=== PATIENT | female | born 1990 | race Caucasian/White ===

== ENCOUNTER 2017-07-02 08:25 | Inpatient (IN) | payer OTHER ==
[2017-07-02] MEDS ORDERED: PITOCin/NS 20 UNIT/1000ML DRIP 20,000 MILLIUNITS/1,000 ML BAG IV ONE (08:40)
[2017-07-02] MEDS ORDERED: LACTATED RINGERS 1,000 ML ONE (10:49)
[2017-07-02] MEDS ORDERED: BRETHINE SUB-Q PRN (11:09)
[2017-07-02] MEDS ORDERED: XYLOCAINE 2% INFILTRATI ONE (11:09)
[2017-07-02] MEDS ORDERED: MINERAL OIL PO PRN (11:09)
[2017-07-02] MEDS ORDERED: STADOL IV PRN (11:09)
[2017-07-02] MEDS ORDERED: SUBLIMAZE IV PRN (11:09)
[2017-07-02] MEDS ORDERED: ePHEDrine SULFATE IV PRN (11:09)
[2017-07-02] MEDS ORDERED: BRETHINE IVP PRN (11:09)
[2017-07-02 11:30] LABS: Hematocrit 31.1 % (30.3-42.9); Hemoglobin 10.4 gm/dl (10.1-14.3); Mean Corpuscular HGB Conc 33 % (30-34); Mean Corpuscular Hemoglobin 30 pg (28-32); Mean Corpuscular Volume 89 fl (79-97); Platelet Count 195 K/mm3 (140-440); Red Blood Count 3.51 M/mm3 (3.65-5.03); Red Cell Distribution Width 15.9 % (13.2-15.2)
[2017-07-02] MEDS ORDERED: PITOCin/NS 20 UNIT/1000ML DRIP 20 UNITS/1,000 ML BAG IV SCH (12:00)
[2017-07-02] MEDS ORDERED: LACTATED RINGERS 1,000 ML IV SCH (12:00)
[2017-07-02] MEDS ORDERED: PITOCin/NS 30 UNIT/500ML 30 UNITS/500 ML BAG IV SCH ×2 (12:00)
--- NOTE | 2017-07-02 12:09 | Event Note ---
Date: 07/02/17 Called by RN at and advised FHT's were down in the 50's and staff was in process of maternal position changes and IV bolus. Requested FSE be placed, placed by Teresa Giang CNM, upon arrival FHT's backup to baseline of 130's with accels.
--- NOTE | 2017-07-02 12:10 | History and Physical Report ---
History of Present Illness Date of examination: 07/02/17 Date of admission: 07/02/17 08:58 History of present illness: 26 yo with LMP EDC of 07/06/17 at 39.3 weeks presented this am at 8am with reported SROM-clear fluid that occurred at 0100 am. Denies vaginal bleeding. Positive FHT's reported. She is GBS negative. First trimester entry into care. course complicated by obesity with early GCT that was elevated, 3hr GTT WN, first and second trimester. Hx of hypothyroidism with endicrinologist following and daily Synthroid. APA comag't for mild bilateral pyeletasis. U/S documented NL scan on right kidney on 04/27/17. She also experienced anemia with iron BID. Past History Past Medical History: thyroid disease Past Surgical History: no surgical history Family/Genetic History: diabetes - Obstetrical History Expected Date of Delivery: 07/06/17 Actual Gestation: 39 Week(s) 3 Day(s) : 5 Para: 2 Hx # Term Pregnancies: 2 Number of Pregnancies: 0 Spontaneous Abortions: 2 Induced : 0 Number of Living Children: 2 Medications and Allergies Allergies Allergy/AdvReac Type Severity Reaction Status Date / Time No Known Allergies Allergy Verified 03/07/15 00:37 Home Medications Medication Instructions Recorded Confirmed Last Taken Type Levothyroxine [Synthroid] 75 mcg PO QAM 07/02/17 07/02/17 1 Day Ago History Active Meds: Active Medications Butorphanol Tartrate (Stadol) 2 mg IV Q2H PRN PRN Reason: Pain , Severe (7-10) Fentanyl (Sublimaze) 100 mcg IV Q2H PRN PRN Reason: Labor Pain Lactated Ringer's (Lactated Ringers) 1,000 mls @ 125 mls/hr IV DIRECT SANTA Oxytocin/Sodium Chloride (Pitocin/Ns 20 Unit/1000ml Drip) 20 units in 1,000 mls @ 125 mls/hr IV DIRECT SANTA Oxytocin/Sodium Chloride (Pitocin/Ns 30 Unit/500ml) 30 units in 500 mls @ 4 mls /hr IV TITR SANTA PRN Reason: Protocol Oxytocin/Sodium Chloride (Pitocin/Ns 30 Unit/500ml) 30 units in 500 mls @ 1 mls /hr IV TITR SANTA; 1 MILLIUNITS/MIN PRN Reason: Protocol Mineral Oil (Mineral Oil) 30 ml PO QHS PRN PRN Reason: Constipation Review of Systems All systems: negative Genitourinary: normal appearance, leakage of fluid, contractions - Vital Signs Vital signs: Vital Signs Pulse Pulse Ox 73 94 07/02/17 08:28 07/02/17 08:28 Temp Pulse Resp BP Pulse Ox 97.6 F 95 H 14 106/66 100 07/02/17 09:14 07/02/17 12:03 07/02/17 09:14 07/02/17 09:14 07/02/17 12:03 - Physical Exam Breasts: Positive: deferred Abdomen: Positive: normal appearance - Obstetrical FHR: category 1 Uterine Contraction Monitor Mode: External Cervical Dilatation: 5 Cervical Effacement Percentage: 90 station: -2 Uterine Contraction Frequency (min): 2-3 Uterine Contraction Duration: 40-60 Uterine Contraction Pattern: Regular Uterine Tone Measurement Phase: Resting Uterine Contraction Intensity: Strong/Firm Results Result Diagrams: 07/02/17 10:15 Abnormal lab results 07/02/17 Range/Units 10:15 RBC 3.51 L (3.65-5.03) M/mm3 RDW 15.9 H (13.2-15.2) % All other labs normal. Assessment and Plan A: IUP at term Active Labor Hypothyroidism Mild Anemia Rubella Non-Immune Obesity SROM P: consult Anticipate
--- NOTE | 2017-07-02 15:42 | Procedure Note ---
OB Delivery Note - Delivery Date of Delivery: 07/09/17 (7-0oz male @ ) Surgeon: ABY ALVES Estimated blood loss: 200cc - Vaginal Delivery presentation: vertex Delivery position: OA Intrapartum events: none Delivery induction: none Delivery augmentation: pitocin Delivery monitor: external FHT, external uterine Route of delivery: Delivery placenta: spontaneous Delivery cord: 3 umbilical vessels Episiotomy: none Delivery laceration: 1st degree (vaginal laceration, approximates well, not bleeding, not repaired) Anesthesia: none - Infant A at 1 minute: 8 at 5 minutes: 9 Infant Gender: Male (Progessed to viable male infant over intake perinuem. Spont., lusky cry. Infant dried and bulb suctioned. Placed skin to skin. Spont. 3VC placenta. Cord blood collected. Fundus messaged firm, bleeding scant. Pitocin infusing. Laceration as noted)
[2017-07-02] MEDS: NORCO 5/325 PO PRN (16:24)
[2017-07-02] MEDS: MOTRIN PO PRN (18:02)
[2017-07-03 05:39] LABS: Hematocrit 28.9 % (30.3-42.9); Hemoglobin 9.7 gm/dl (10.1-14.3)
[2017-07-03] MEDS ORDERED: BOOSTRIX IM ONE (06:10)
[2017-07-03] MEDS: MOTRIN PO PRN ×3 (06:17→23:29)
--- NOTE | 2017-07-03 08:41 | Progress Note ---
Assessment and Plan - Patient Problems (1) Active labor at term Current Visit: Yes Status: Acute Plan to address problem: patient doing well discharge home later today Subjective - Subjective Date of service: 07/03/17 Interval history: No significant complaints. Minor cramping Patient reports: appetite normal, voiding normally, pain well controlled Tracy: doing well Objective - Vital Signs Latest vital signs: Vital Signs Temp Pulse Resp BP Pulse Ox 07/03/17 08:28 98.1 F 67 18 113/65 07/03/17 04:00 98.6 F 69 16 101/72 07/03/17 00:00 98.6 F 77 16 113/77 07/02/17 20:30 98.6 F 69 16 101/77 07/02/17 18:02 20 07/02/17 17:10 99.0 F 59 L 20 108/64 07/02/17 16:24 77 114/79 07/02/17 16:09 90 115/82 07/02/17 15:54 88 112/79 07/02/17 15:39 96 H 111/75 07/02/17 12:08 87 100 07/02/17 12:03 95 H 100 07/02/17 11:58 87 100 07/02/17 11:53 94 H 100 07/02/17 09:14 97.6 F 72 14 106/66 07/02/17 08:59 72 106/66 Intake and Output 07/02/17 07/03/17 07/03/17 22:59 06:59 14:59 Intake Total 860 600 Output Total 900 Balance -40 600 Intake: Oral 560 Intake, Free Water 300 600 Output: Urine 900 Void 900 Other: Total, Intake Amount 200 Total, Output Amount 600 # Voids Void 1 - Exam Uterus: Present: normal, firm - Labs Labs: Abnormal lab results 07/02/17 07/03/17 Range/Units 10:15 05:03 RBC 3.51 L (3.65-5.03) M/mm3 Hgb 9.7 L (10.1-14.3) gm/dl Hct 28.9 L (30.3-42.9) % RDW 15.9 H (13.2-15.2) %
--- NOTE | 2017-07-03 08:44 | Discharge Summary ---
Providers - Providers Date of Admission: 07/02/17 08:58 Date of discharge: 07/03/17 Attending physician: MARSHAL VILLAR Primary care physician: MARSHAL VILLAR Hospitalization Reason for admission: active labor Delivery: Other procedures: none complications: none Discharge diagnosis: IUP at term delivered Hospital course: Patient admitted in active labor. Had a . uncomplicated Condition at discharge: Good Disposition: DC-01 TO HOME OR SELFCARE - Discharge Diagnoses (1) Active labor at term Status: Acute Plan - Discharge Medications Prescriptions: HYDROcodone/APAP 5-325 [[place] 5/325] 1 each PO Q6HR PRN #30 tablet PRN Reason: Pain Ibuprofen [Motrin] 800 mg PO Q8HR PRN #60 tablet PRN Reason: Pain - Provider Discharge Summary Activity: no sex for 6 weeks, no heavy lifting 4 weeks, no strenuous exercise Diet: routine Instructions: routine Additional instructions: [] Smoking cessation referral if applicable(refer to patient education folder for contact #) [] Refer to [facility] Booklet Call your doctor immediately for: * Fever > 100.5 * Heavy vaginal bleeding ( >1 pad per hour) * Severe persistent headache * Shortness of breath * Reddened, hot, painful area to leg or breast * followup in 4 weeks - Follow up plan
[2017-07-03] MEDS: NORCO 5/325 PO PRN ×2 (09:06→18:10)
[2017-07-03] MEDS ORDERED: LANSINOH TP PRN (14:00)
[2017-07-04] MEDS: NORCO 5/325 PO PRN (05:21)
[2017-07-04] MEDS: MOTRIN PO PRN (12:02)
[2017-07-04] MEDS ORDERED: M-M-R II VACCINE SUB-Q ONE (15:21)
[2017-07-04 18:30] VITALS: BP 129/82
== END 2017-07-04 19:37 | disposition home or self-care (01) | DRG 774 ==
LOC: TRG 08:25 → LD 08:58 → TRG 08:58 → OB 17:03
PROVIDERS: ADMIT Obstetrics & Gynecology; ATTEND Obstetrics & Gynecology
PROC: 10E0XZZ Delivery of Products of Conception, External Approach (ICD-10-PCS; principal; 2017-07-02)
PROC: 3E0234Z Introduction of Serum, Toxoid and Vaccine into Muscle, Percutaneous Approach (ICD-10-PCS; 2017-07-04)
DX: O99.214 Obesity complicating childbirth (principal); O98.52 Other viral diseases complicating childbirth; B06.89 Other rubella complications; E66.9 Obesity, unspecified; O99.284 Endocrine, nutritional and metabolic diseases complicating childbirth; E03.9 Hypothyroidism, unspecified; O99.02 Anemia complicating childbirth; D64.9 Anemia, unspecified; O71.4 Obstetric high vaginal laceration alone; Z3A.39 39 weeks gestation of pregnancy; Z37.0 Single live birth; Z68.30 Body mass index [BMI] 30.0-30.9, adult; Z83.3 Family history of diabetes mellitus; Z23 Encounter for immunization
CPT/HCPCS: 36415; 85014; 85018; 85027; 86592; 86850; 86900; 86901; 90471; 90715; 99211; A6250; G0463; J2590; J7120